=== PATIENT | female | born 1960 | race Two or more races ===

== ENCOUNTER 2016-10-24 06:52 | Emergency (ER) | payer MEDICAID, OTHER ==
[~2016-10-24] VITALS: Ht 165.1 cm; Wt 72.6 kg
[2016-10-24 07:06] VITALS: BP 124/77
== END 2016-10-24 07:24 | disposition home or self-care (01) ==
LOC: ER 06:52
DX: J06.9 Acute upper respiratory infection, unspecified (principal); R05 Cough; E78.00 Pure hypercholesterolemia, unspecified
CPT/HCPCS: 99283; A4606; Z7610

== ENCOUNTER 2016-12-21 22:38 | Emergency (ER) | payer OTHER ==
[~2016-12-21] VITALS: Ht 154.9 cm; Wt 95.3 kg
[2016-12-21 22:59] VITALS: BP 137/80
[2016-12-21] MEDS ORDERED: IV NS 0.9% 1,000 ML BAG IV ONE (23:30)
[2016-12-21] MEDS ORDERED: TETRACAINE HCL/PF 0.5% UD 2 ML BOTTLE OP ONE (23:30)
[2016-12-21] MEDS ORDERED: FLUORESCEIN SODIUM OPHTH 1 EA STRIP OP ONE (23:30)
[2016-12-21] MEDS ORDERED: IV SET PRIMARY 1 EA INFUS.SET MC ONE (23:40)
[2016-12-21] MEDS ORDERED: FLUORESCEIN SODIUM OPHTH 1 EA STRIP ONE (23:40)
[2016-12-21] MEDS ORDERED: TDAP [DIPH/PERTUSSIS/TET] 0.5 ML VIAL IM ONE (23:40)
[2016-12-21] MEDS ORDERED: IV NS 0.9% 1,000 ML ONE (23:40)
[2016-12-21] MEDS ORDERED: TETRACAINE HCL/PF 0.5% UD 2 ML BOTTLE ONE (23:41)
== END 2016-12-22 00:23 | disposition home or self-care (01) ==
LOC: ER 22:42
DX: S05.02XA Injury of conjunctiva and corneal abrasion without foreign body, left eye, initial encounter (principal); E78.00 Pure hypercholesterolemia, unspecified; X58.XXXA Exposure to other specified factors, initial encounter; Y93.89 Activity, other specified; Y92.89 Other specified places as the place of occurrence of the external cause; Y99.8 Other external cause status
CPT/HCPCS: 99284; A4606; J7030; Z7610; 90715

== ENCOUNTER 2018-01-03 21:37 | Emergency (ER) | payer MEDICAID, OTHER ==
[~2018-01-03] VITALS: Ht 160 cm; Wt 72.6 kg
--- NOTE | 2018-01-03 21:51 | NUR ---
PT BIBSELF CO LUQ PAIN RADIATING TO BACK X2 DAYS" PT AOX3 RR EVEN AND UNLABORED. NO SOB NOTED. NAD NOTED. NO NVD AT THIS TIME. PT GOWNED AND PLACED ON MONITOR WAITING FOR MD BLOCK.
--- NOTE | 2018-01-03 22:08 | NUR ---
DR. KIMBLE AT BEDSIDE FOR EVAL.
[2018-01-03] MEDS ORDERED: IBUPROFEN 400 MG TABLET ONE (22:25)
[2018-01-03] MEDS ORDERED: IBUPROFEN 400 MG TABLET PO ONE (22:30)
--- NOTE | 2018-01-03 22:33 | NUR ---
RADIOLOGY AT BEDSIDE FOR XR
--- NOTE | 2018-01-03 23:33 | NUR ---
Patient discharged to home in stable condition. Written and verbal after care instructions given. Patient verbalizes understanding of instruction. ambulatory with a steady gait.
[2018-01-03 23:34] VITALS: BP 140/68
== END 2018-01-03 23:34 | disposition home or self-care (01) ==
LOC: ER 21:39
DX: S29.011A Strain of muscle and tendon of front wall of thorax, initial encounter (principal); R07.89 Other chest pain; E78.00 Pure hypercholesterolemia, unspecified; X58.XXXA Exposure to other specified factors, initial encounter; Y93.89 Activity, other specified; Y92.89 Other specified places as the place of occurrence of the external cause; Y99.8 Other external cause status
CPT/HCPCS: 71045-TC; A4606; Z7610

== ENCOUNTER 2020-01-13 07:44 | Emergency (ER) | payer MEDICAID ==
[~2020-01-13] VITALS: Ht 160 cm; Wt 97.5 kg
[2020-01-13 07:53] VITALS: BP 157/108
--- NOTE | 2020-01-13 07:55 | NUR ---
SEEN AND EXAMINED BY
--- NOTE | 2020-01-13 07:59 | NUR ---
DOPEMAN AT BEDSIDE FOR XRAY.
--- NOTE | 2020-01-13 08:33 | NUR ---
R WRIST BRACE APPLIED BY METER TECHNICIAN.
--- NOTE | 2020-01-13 08:34 | NUR ---
Patient discharged to home in stable condition. Written and verbal after care instructions given. Patient verbalizes understanding of instruction.
== END 2020-01-13 08:42 | disposition home or self-care (01) ==
LOC: ER 07:45
DX: S63.501A Unspecified sprain of right wrist, initial encounter (principal); I10 Essential (primary) hypertension; E78.00 Pure hypercholesterolemia, unspecified; W01.0XXA Fall on same level from slipping, tripping and stumbling without subsequent striking against object, initial encounter; Y93.89 Activity, other specified; Y92.89 Other specified places as the place of occurrence of the external cause; Y99.0 Civilian activity done for income or pay
CPT/HCPCS: 73110